=== PATIENT | female | born 1935 | race Caucasian/White ===

== ENCOUNTER 2017-04-19 11:09 | Inpatient (IN) ==
--- NOTE | 2017-04-19 12:15 | Emergency Department Note ---
Jevon Hernandez Hilary, am scribing for, and in the presence of, Jcarlos Ramires MD 12:00. Keyla Hernandez Charles R, MD, personally performed the services described in this documentation, ascribed by Brenda Escoto in my presence, and it is both accurate and complete 215 . Arrival - Arrival Chief Complaint: Extremity Problem Stated Complaint: sent by Dominick for poss blood clot/consult [facility] Nursing Triage Note: C/o left lower leg pain-onset two weeks ago. Reports that she was instructed by Dr. Tan and Dr. Raymond to come to the ER for evaluation. Left leg pale and cool to touch. No palpable pulse, states she has 6 stents in her leg and her pulse is "always hard to find". Mode of Arrival: Wheelchair Limitations: No Limitations Source: Patient, RN Notes Reviewed Time Seen by Provider: 04/19/17 11:48 - History of Present Illness HPI Narrative: Pt is a 81 y/o female presenting to the ED with c/o left lower leg pain which onset 2 weeks ago. Pt reports that she was instructed by Dr. Tan and Dr. Raymond to come to the ER for evaluation. Left leg pale and cool to touch with no palpable pulse, she states she has 7 stents in her legs 6 months ago. She states that she doesn't feel well and just feels "weak". No other complaints or problems stated in the ED. Onset (ago): week(s) Consistency: constant Severity: moderate Severity scale (1-10): 2 Date of Last Menstrual Period: menopause Allergies/Adverse Reactions: Allergies Allergy/AdvReac Type Severity Reaction Status Date / Time No Known Allergies Allergy Verified 04/19/17 11:20 Home Medications: Home Medications Medication Instructions Recorded Confirmed Type Lovastatin 20 mg PO QAM 10/05/16 04/19/17 History Multivit-Min/Iron/Folic/Lutein 1 each PO QAM 10/05/16 04/19/17 History [Centrum Silver Women Tablet] Magnesium Oxide 400 mg PO BID tablet 10/11/16 04/19/17 Rx Sotalol [Betapace] 40 mg PO BID #60 tablet 10/11/16 04/19/17 Rx Clopidogrel [Plavix] 75 mg PO QAM 04/19/17 04/19/17 History Review of System - Review of System 12 point system: reviewed and no additional remarkable complaints except as stated - Review of System Constitutional: Present: weakness. Absent: fever Musculoskeletal: Present: leg pain (left leg pain) Neurological: Present: weakness Medical,Surgical,& Family Hx - Medical History Cardio: History of: Hypertension, PVD No history of: Cardiac Dysrhythmia, CHF, CAD Endocrine: History of: Dyslipidemia Musculoskeletal: History of: Back/Neck Problems, Musculoskeletal Problems Hematology: History of: Anemia - Social History Smoking Status: Never smoker Frequency of Alcohol Use: None Type of Drug Use: None Exam Vital Signs: Vital Signs Temperature 98.0 F 04/19/17 11:15 Pulse Rate 63 04/19/17 11:15 Respiratory Rate 20 04/19/17 11:15 Blood Pressure 168/81 04/19/17 11:15 O2 Sat by Pulse Oximetry 100 04/19/17 11:15 - General General appearance: alert, in no apparent distress - Head Head exam: Present: atraumatic, normocephalic - Eye Eye exam: Present: normal appearance (pale conjuctiva), PERRL, EOMI - ENT ENT exam: Present: mucous membranes moist, TM's normal bilaterally. Absent: mucous membranes dry - Neck Neck exam: Present: full ROM, trachea midline. Absent: tenderness - Chest Chest inspection: Present: normal inspection (barrel chested), symmetric chest wall rise. Absent: tenderness - Respiratory Respiratory exam: Present: normal lung sounds bilaterally, rhonchi (bilateral). Absent: respiratory distress - Cardiovascular Cardiovascular exam: Present: regular rate, normal rhythm, normal heart sounds. Absent: murmur, rubs, gallop - Abdominal Exam Abdominal exam: Present: soft, normal bowel sounds. Absent: distention, tenderness - Extremities Exam Extremities exam: Present: tenderness (Left leg: cool temperature to touch, line of demarcation of hot and cold, delay capillary refill, no pulses felt) - Back Exam Back exam: Present: full ROM. Absent: tenderness - Neurological Exam Neurological exam: Present: alert, oriented X3, CN II-XII intact. Absent: motor sensory deficit - Psychiatric Psychiatric exam: Present: normal affect, normal mood - Skin Skin exam: Present: warm, dry, intact, normal color. Absent: rash Course - Consultations Consultation #1: Dr. Raymond was here to see patient in the emergency room they are going to take her for possible thrombosed lysis of suspected distal clot in her left leg arterial. This be done by interventional radiology. 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
[2017-04-19 12:21] LABS: Eosinophils # 0.2 10*3/uL (0.0-0.87); Eosinophils % 5.4 % (0.00-10.9); Immature Granulocytes % 0.5 %; Immature Granulocytes Absolute 0.02 #; Lymphocytes # 0.9 10*3/uL (1.4-4.0); Lymphocytes % 25.3 % (21.3-54.2); Mean Corpuscular HGB Conc 27.1 GM/DL (32-36); Mean Corpuscular Hemoglobin 19 PG (27-34); Mean Corpuscular Volume 70.2 FL (87-102); Mean Platelet Volume 10.3 FL (9.6-12.0); Monocytes # 0.3 10*3/uL (0.11-0.8); Monocytes % 7.8 % (1.7-12.7); Neutrophils # 2.3 10*3/uL (1.4-7.4); Platelet Count 169 T/CUMM (130-400); Red Blood Count 2.99 MC/CUMM (3.8-5.5); Red Cell Distribution Width 17.2 % (9.3-17.3); White Blood Count 3.7 T/CUMM (4-12)
[2017-04-19 12:28] LABS: Hemoglobin 5.7 GM/DL (12.0-16.0)
[2017-04-19 12:33] LABS: PT Patient Result 11.1 SECS
--- NOTE | 2017-04-19 12:42 | General Surg History&Physical ---
Assessment and Plan (1) Ischemic foot Status: Acute Assessment and plan: This is recurrent iliofemoral thrombosis 6 months ago Ms. Ching underwent from the lysis and external iliac stenting we will plan arteriography with thrombolyzes and intervention as is indicated. She also has a significant and profound anemia that is recurrent she has been evaluated in the past with no clear-cut reasons for the anemia. We will transfuse while here and we have discussed with her that if her anemia is resulted to chronic intestinal blood loss that could be exacerbated by thrombolyzes but it did not pose a significant issue for her in the past Current Visit: Yes (2) Anemia Status: Acute Current Visit: Yes History of Present Illness Chief complaint: left iliofemoral arterial thrombosis History of present illness: Ms. Horne is a 81 year old female Mrs. Ching is an 81-year-old woman that was here last September with a left iliofemoral thrombosis he had previously undergone left superficial femoral stenting approximately a year before [place] but developed a relatively acute thrombosis this was successfully treated with probable lysis and external iliac stenting and she has gotten along well since that time until 2-3 weeks ago. She then noted increasing pain and coolness in her left leg was seen by Dr. Tan nurse practitioner earlier today I was informed of the changes in the leg. We will let her transferred to the emergency room for clearly there is recurrent left iliofemoral thrombosis with cyanosis and coolness of the left foot. Dr. Espinoza and I have discussed her care again and they are recommending that we go ahead with the arteriogram and probable thrombolyzes and possible further intervention as indicated. I discussed this with Mrs. Ching and her daughter Ms. Lopez her is Dr. Alber Lopez an insurance account representative in [place] who is known for some time. They agreed with these plans. Of significance is recurring and persistent anemia and she is again anemic at this time and we will plan on transfusion while here. Home Medications Medication Instructions Recorded Confirmed Type Lovastatin 20 mg PO QAM 10/05/16 04/19/17 History Multivit-Min/Iron/Folic/Lutein 1 each PO QAM 10/05/16 04/19/17 History [Centrum Silver Women Tablet] Magnesium Oxide 400 mg PO BID tablet 10/11/16 04/19/17 Rx Sotalol [Betapace] 40 mg PO BID #60 tablet 10/11/16 04/19/17 Rx Clopidogrel [Plavix] 75 mg PO QAM 04/19/17 04/19/17 History Allergies Allergy/AdvReac Type Severity Reaction Status Date / Time No Known Allergies Allergy Verified 04/19/17 11:20 Medical,Surgical,& Family Hx - Medical History Cardio: History of: Hypertension, PVD No history of: Cardiac Dysrhythmia (has had atrial fibrilation associated with anemia), CHF, CAD Endocrine: History of: Dyslipidemia Musculoskeletal: History of: Back/Neck Problems, Musculoskeletal Problems Hematology: History of: Anemia - Social History Smoking Status: Never smoker Frequency of Alcohol Use: None Type of Drug Use: None Exam - Constitutional Vitals: Period Temp Pulse Resp BP Sys/Segura Pulse Ox Last 24 Hr 98.0 F 63 20 168/81 100 General appearance: no acute distress, under weight - Head Head exam: Present: normal inspection - Eye Eye exam: Present: EOMI Pupils: Present: [place] - ENT ENT exam: Present: normal external ear exam, normal oropharynx Mouth exam: Present: normal external inspection, normal voice - Neck Neck exam: Present: trachea midline - Respiratory Respiratory exam: Present: clear to auscultation bilaterally - Cardiovascular Cardiovascular exam: Present: RRR - GI/Abdominal GI/Abdominal exam: Present: soft - Expanded Left Lower Neuro vascular tendon exam: Present: extremity cold to touch (Left foot is cold to touch with cyanosis of the toes there is no Doppler signal in the dorsalis pedis of the posterior tibial significant leg there is a weak dorsalis pedis on the right there is no femoral pulse on the left a good femoral pulse on the right), pulse deficit Gait: Present: not tested/not observed - Back Exam Back exam: Present: normal inspection - Neurological Exam Neurological exam: Present: alert, oriented X3 Speech: Present: normal - Skin Skin exam: Present: normal color Hematologic/Lymphatic: Present: other (recurring anemia unknown etiology) Results - Labs CBC & BMP: 04/19/17 12:15
[2017-04-19] MEDS ORDERED: ALBUTEROL 2.5 MG/3 ML NEB RESP TX PRN (12:48)
[2017-04-19] MEDS ORDERED: ONDANSETRON 4 MG/2 ML VIAL IV PRN (12:48)
[2017-04-19] MEDS ORDERED: fentaNYL 100 MCG/2 ML VIAL IV ONE (12:51)
[2017-04-19] MEDS ORDERED: MIDAZOLAM 2 MG/2 ML VIAL IV ONE (12:51)
[2017-04-19] MEDS ORDERED: DIAZEPAM 5 MG TABLET PO ONE (12:51)
--- NOTE | 2017-04-19 12:55 | IR History and Physical Update ---
IR Pre-Procedure - History and Physical H&P was reviewed, the patient examined and there: are no changes in the patients condition since last H&P was completed. Reason for procedure:: 81 yo F new onset LLE pulseless and pain. Known to me from prior left external iliac artery stenting and revision of left SFA stents from [place], [place]. - Physical Exam Vital Signs: Last Vital Signs Temp 98 F 04/19/17 12:39 Pulse 63 04/19/17 12:39 Resp 20 04/19/17 12:39 BP 168/81 04/19/17 12:39 Pulse Ox 100 04/19/17 11:15 Mental Status: alert and oriented Peripheral pulses: 0: Common Femoral (L), Popliteal (L), Dorsalis Pedis (L), Posterior Tibialis (L), 2+: Common Femoral (R) - Sedation IR anesthesia plan for sedation: minimal ASA Class: III - Risks Risks: Procedures explained. Risks discussed include, but not limited to, the following:[catastrophic bleeding, pain, inability to restore flow ] All questions answered. The following alternatives were discussed:[surgery] Risks and benefits discussed with: patient Consent obtained from: patient Assessment and Plan - Time spent with patient Time spent with patient: Less than 30 minutes (1) Ischemic foot Status: Acute Assessment and plan: Assessment: Left esternal iliac stent thrombosis Plan: Angiogram, tPA lysis, possible stent and/or [employer] Current Visit: Yes
[2017-04-19] MEDS ORDERED: HEPARIN/NACL 0.9% 2 UNITS/ML 2,000 ML IV ONE (13:12)
[2017-04-19 13:20] LABS: Alanine Aminotransferase 13 U/L (13-56); Alkaline Phosphatase 57 U/L (45-117); Aspartate Amino Transferase 15 U/L (0-37); Blood Urea Nitrogen 11 MG/DL (7-18); Calcium 8.9 MG/DL (8.5-10.1); Glucose 117 MG/DL (74-106); Magnesium 2.2 MG/DL (1.8-2.4); Osmolality,Calculated 274.7 MOS/KG (273-304); Potassium 4.9 MMOL/L (3.5-5.1); Sodium 138 MMOL/L (136-145); Total Protein 6.6 G/DL (6.4-8.3); Troponin I Only < 0.015 NG/ML (0.00-0.045)
[2017-04-19 13:25] LABS: Hypochromasia 2+; Microcytosis 2+
[2017-04-19] MEDS ORDERED: fentaNYL 100 MCG/2 ML VIAL ONE (14:12)
[2017-04-19] MEDS ORDERED: MIDAZOLAM 2 MG/2 ML VIAL ONE (14:12)
[2017-04-19] MEDS ORDERED: ALTEPLASE 24 MG in SODIUM CHLORIDE 0.9% 480 ML IV SCH (14:30)
[2017-04-19] MEDS ORDERED: MORPHINE 2 MG/1 ML SYRINGE IV PRN (15:09)
--- NOTE | 2017-04-19 15:21 | Post Interventional Procedure ---
Pre-op diagnosis: Arterial thrombosis left pelvis Post-op diagnosis: same Procedure: Left pelvic and LLE angiogram, positioning of infustion catheter left external iliac stent occlusion Contrast: Visipaqu 320, 40 cc Flouroscopy: 9.7 min Radiologist: Maximilian Espinoza Anesthesia: conscious sedation Medications: Versed 1 mg, Fentanyl 25 mcg, 30 min Total Sedation Time: 30 min Specimens: none sent Estimated blood loss: none Complications: none Condition: stable Description/Findings: Occluded left ext iliac artery stent - placed 10 cm infusion catheter Occluded left SFA, unable to recannulate Unable to complete runoff b/c inflow disease Assessment and Plan - Time spent with patient Time spent with patient: Greater than 30 minutes (1) Ischemic foot Status: Acute Assessment and plan: Assessment: Left esternal iliac stent thrombosis Plan: Angiogram, tPA lysis, possible stent and/or MEDICAL ACCOUNTANT 15:21 @ 04/19/17: 10 cm infusion catheter placed across left external iliac artery stent occlusion. 0.5 mg/hr tPA infusion via catheter. Heparin 500 u/hr via sheath. ICU. Serial PT, PTT, fibrinogen. Recheck in the morning. Current Visit: Yes
[2017-04-19] MEDS ORDERED: HEPARIN DRIP 25,000 UNITS/500 ML PREMIX IV SCH (15:30)
--- NOTE | 2017-04-19 16:04 | Interventional Radiology Rpt ---
IR angio extremity LT, US guide vascular access, IR TPA trans cath inf arterial Indication: Peripheral arterial disease. Pulseless left leg with ischemic changes left foot. Most recent intervention September 2016 with left external iliac artery stent placement at this facility. LEFT PELVIC AND LEFT LOWER EXTREMITY ARTERIOGRAM, POSITIONING OF INFUSION CATHETER FOR THROMBOLYSIS Description: A formal timeout was performed. Maximum sterile barrier technique was instituted. Patient is artery on Plavix. Therefore, singlestick is required. Ultrasound guidance was used. Sonographic evaluation of the right common femoral artery shows atheromatous disease but it is otherwise patent and compressible. Under sonographic guidance, a micropuncture needle was advanced into the right common femoral artery. A captured sonographic image documents needle position. Needle was exchanged over a wire for a sheath. A C2 glide catheter was then used to select the left common iliac artery. Angiogram was performed showing occlusion of the left external iliac artery stent. C2 catheter and Glidewire were advanced into the occluded stent with a degree of difficulty. The thrombus encountered was hard and had a gritty tactile feel, likely chronic. Regardless, the wire was advanced further, and the C2 catheter removed. Existing sheath was exchanged for an up and over Balkan sheath. The Gage catheter was advanced over the wire and with moderate difficulty, the occluded left external iliac arterial stent was crossed. This catheter was situated in the left common femoral artery and an angiogram performed. This showed patency of the profunda femoris, but total occlusion of the left SFA. No significant outflow could be demonstrated distally. At this point, Glidewire and Gage catheter were used to probe the occluded SFA resulting in multiple subintimal dissection tracks. Contrast was injected at a couple of places within the left SFA showing both dissection flap as well as heterogeneous and coarse appearing thrombus within the left SFA, suggesting chronic thrombus. At this point, the Gage catheter was removed. A 10 cm length infusion catheter was then advanced across the occluded left external iliac artery stent. It was anchored in place, with the intent of infusing TPA 0.5 mg per hour overnight. Patient is transferred to the ICU in stable condition. Contrast: Visipaque 320, 40 cc. Fluoroscopy: 9.7 minutes, 126 captured images. Impression: 1. Total occlusion of left external iliac artery stent. Infusion catheter position for TPA thrombolyzes of the stent. 2. Total occlusion left SFA. Unable to track within the lumen of the left SFA with a catheter and wire. PROCEDURE INTERPRETED AT [facility] DEPARTMENT OF RADIOLOGY Final Report Signed by: Maximilian Espinoza M.D.
[2017-04-19] MEDS: SODIUM CHLORIDE 0.9% 1,000 ML IV SCH (16:17)
[2017-04-19 16:22] LABS: INR 1.1; PT Patient Result 11.3 SECS; Partial Thromboplastin Time 23.6 SECS (0-40)
[2017-04-19] MEDS: MORPHINE 2 MG/1 ML SYRINGE IV PRN (16:40)
[2017-04-19] MEDS ORDERED: SODIUM CHLORIDE 0.9% 250 ML IV PRN (17:05)
--- NOTE | 2017-04-19 17:05 | Cardiology Consult Note ---
Assessment and Plan - Time spent with patient Time spent with patient: Less than 30 minutes (1) Ischemic foot Status: Acute Assessment and plan: See plan of care listed below. 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 Current Visit: Yes (3) Paroxysmal atrial fibrillation Status: Chronic Assessment and plan: See plan of care listed below. Current Visit: Yes (4) Hypertension Status: Chronic Assessment and plan: See plan of care listed below. Current Visit: No (5) Peripheral vascular disease Status: Chronic Assessment and plan: See plan of care listed below. Current Visit: Yes (6) Iron deficiency anemia Status: Chronic Assessment and plan: See plan of care listed below. Current Visit: No History of Present Illness - Data of Consult Patient: known to practice within the last 3 years Consult date: 04/19/17 Requesting Physician: Rajat Raymond - Consult Narrative Reason for consult: history of afib History of present illness: HISTORICAL MANUSCRIPTS CURATOR: DR. CAMARILLO PCP: Dr. Tan Ms. Horne is a 81 year old female with a history of paroxysmal atrial fibrillation, hypertension, peripheral vascular disease, iron deficiency anemia. She was admitted to the hospital today after being seen in Dr. Tan' s clinic. Over the past several weeks she has noticed increasing pain and coldness in the left leg. She was seen in the emergency room by general surgery and interventional radiology. 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 She has also had persistent anemia with current H&H 5.7&21.0. She has been ordered to receive 2 units of blood. We were consulted to see her for her history of PAF. She currently looks like she has been in sinus arrhythmia, we will get an EKG to confirm. She has previously not been a candidate for anticoagulation due to her history of anemia. She has been controlled with sotalol in the past and we will continue this. She denies any recent chest pain, palpitations. She reports she does occasionally have some shortness of breath but not on a regular basis. Upon admission, she was noted to have a white blood cell count 3.7, red blood cell count 2.99, hemoglobin 5.7, hematocrit 21, platelet count 169. INR was 1.1. Potassium 4.9, creatinine 0.6 with GFR 73 and magnesium 2.2. Angiography of the left extremity revealed: 1. Total occlusion of left external iliac artery stent. Infusion catheter position for TPA thrombolyzes of the stent. 2. Total occlusion left SFA. Unable to track within the lumen of the left SFA with a catheter and wire. ASSESSMENT/PLAN: 1. ISCHEMIC FOOT - General surgery and IR are following. She is currently receiving TPA and Heparin. 2. LEFT EXTERNAL ILIAC STENT THROMBOSIS - Patient was found to have an occluded left external iliac artery stent for which a 10cm infusion catheter was placed, occluded left SFA which IR was unable to recannulate, and runoff was not completed due to inflow disease. She is currently receiving TPA @ 0.5mg/hr via infusion catheter and Heparin 500 units/hr via sheath. 3. PAROXYSMAL ATRIAL FIBRILLATION - Continue Sotalol. EKG now and in AM. Not a candidate for chronic anticoagulation due to anemia and history of thrombocytopenia. 4. HYPERTENSION - Currently hypertensive; however, Ms. Horne is currently in a good deal of pain following her procedure. Once her pain is better under control , we will have a better idea of what her baseline is. We will continue to monitor and adjust medications accordingly. 5. PERIPHERAL VASCULAR DISEASE - Chronic. 6. IRON DEFICIENCY ANEMIA - Anemic upon admission. She is to receive 2 units of blood. CC: Rajat Raymond MD - Home Medications and Allergies Home Medications: Home Medications Medication Instructions Recorded Confirmed Type Lovastatin 20 mg PO QAM 10/05/16 04/19/17 History Multivit-Min/Iron/Folic/Lutein 1 each PO QAM 10/05/16 04/19/17 History [Centrum Silver Women Tablet] Magnesium Oxide 400 mg PO BID tablet 10/11/16 04/19/17 Rx Sotalol [Betapace] 40 mg PO BID #60 tablet 10/11/16 04/19/17 Rx Clopidogrel [Plavix] 75 mg PO QAM 04/19/17 04/19/17 History Allergies/Adverse Reactions: Allergies Allergy/AdvReac Type Severity Reaction Status Date / Time No Known Allergies Allergy Verified 04/19/17 11:20 Review of systems: - Constitutional: Present: fatigue, As per HPI. Absent: anorexia, chills, daytime sleepiness, excessive sweating, fever(s), frequent falls, headache(s), increased appetite, lethargy, malaise, night sweats, stops breathing during sleep, weakness, weight gain, weight loss, . - EENT Eyes: Present: As per HPI. Absent: blurry vision, diplopia, loss of vision Ears: Present: As per HPI. Absent: decreased hearing, ear discharge, ear pain Nose, mouth and throat: Present: As per HPI. Absent: dysphagia, epistaxis, headache(s), hoarseness, lip swelling, nasal congestion, neck mass, neck pain, sinus pressure, sore throat, throat swelling, tongue swelling, vertigo - Cardiovascular: Present: occasional dyspnea, as per HPI. Absent: chest pain at rest, chest pain with activity, dyspnea on exertion, edema, claudication, diaphoresis, radiating jaw, neck or arm pain, lightheadedness, orthopnea, palpitations, PND - Respiratory: Present: as per HPI. Absent: dyspnea, dyspnea on exertion, cough , hemoptysis, wheezing, snoring, pain on inspiration - Gastrointestinal: Present: As per HPI. Absent: abdominal pain, bloating, change in bowel habits, constipation, diarrhea, heartburn, hematemesis, hematochezia, loose stools, melena, nausea, vomiting - Genitourinary: Present: As per HPI. Absent: difficulty urinating, dysuria, flank pain, hematuria, nocturia, urinary frequency, urinary incontinence - Musculoskeletal: Present: left leg pain, As per HPI. Absent: arthralgias, back pain, joint swelling, limited range of motion, muscle cramps, muscle weakness, myalgias - Neurological: Present: weakness, numbness,As per HPI. Absent: abnormal gait, abnormal speech, behavioral changes, confusion, convulsions, disequilibrium, dizziness, focal frequent falls, headache(s), memory loss, paresthesias, radicular pain, syncope, tremor(s) - Psychiatric: Present: As per HPI. Absent: anxiety, confusion, depression, panic attacks - Endocrine: Present: fatigue, As per HPI. Absent: cold intolerance, heat intolerance, polydipsia, polyphagia - Hematologic/Lymphatic: Present: As per HPI. Absent: easy bleeding, easy bruising, lymphadenopathy Medical,Surgical,& Family Hx - Medical History Cardio: History of: Cardiac Dysrhythmia (has had atrial fibrilation associated with anemia), Hypertension, PVD No history of: CHF, CAD Endocrine: History of: Dyslipidemia Musculoskeletal: History of: Back/Neck Problems, Musculoskeletal Problems Hematology: History of: Anemia - Social History Smoking Status: Never smoker Frequency of Alcohol Use: None Type of Drug Use: None Marital Status: Lives With:: Alone Physical Examination Vital Signs Temp Pulse Resp BP Pulse Ox 98.0 F 63 20 168/81 100 04/19/17 11:15 04/19/17 11:15 04/19/17 11:15 04/19/17 11:15 04/19/17 11:15 Exam: General appearance: Pleasant and cooperative. Normal weight, mild distress due to left lower extremity and left groin pain. - Head Head exam: Present: normal inspection, normocephalic, atraumatic. Absent: hematoma, laceration - Eye Eye exam: Present: EOMI. Absent: conjunctival injection, nystagmus, periorbital swelling, scleral icterus, laceration to eyelids Pupils: Present: PERRL. Absent: constricted, dilated, fixed, irregular, unequal - ENT ENT exam: Present: normal exam, normal external ear exam - Neck Neck exam: Present: normal inspection. Absent: lymphadenopathy, meningismus, tenderness, thyromegaly - Respiratory Respiratory exam: Present: clear to auscultation bilaterally. Absent: accessory muscle use, chest wall tenderness - Cardiovascular Cardiovascular exam: Present: regular rate and rhythm. Absent: carotid bruit, gallop, JVD, rubs, murmur - GI/Abdominal GI/Abdominal exam: Present: normal bowel sounds, soft. Absent: distended, firm , guarding, hernia, mass, tenderness, rebound. - Extremities Exam Extremities exam: Present: Upper extremity pulses 2+. Right lower extremity pulse 2+. Left lower extremity pulse diminished. Absent: calf tenderness, edema -Musculoskeletal Exam Musculoskeletal: Present: No Fluid Collection, No Pain, Normal Range of Motion - Back Exam Back exam: Present: Unable to assess due to habitus (patient lying flat due to vascular procedure and right groin sheath/infusion catheter in place) - Neurological Exam Neurological exam: Present: alert, oriented X3, grossly intact without resting or essential tremor - Psychiatric Psychiatric exam: Present: normal affect, normal mood - Skin Skin exam: Present: normal color, warm, dry, intact except: Left foot cool with grayish appearance. Right foot pink and warm. Absent: diaphoretic, rash, urticaria Result/EKG - Labs CBC & BMP: 04/19/17 12:15 04/19/17 12:15 Lab Results: I have reviewed the past 24 hour labs Labs: Laboratory Results - last 24 hr 04/19/17 04/19/17 04/19/17 12:02 12:15 12:15 WBC 3.7 L RBC 2.99 L Hgb 5.7 L* Hct 21.0 L MCV 70.2 L MCH 19 L MCHC 27.1 L RDW 17.2 Plt Count 169 MPV 10.3 Neut % (Auto) 61.0 Lymph % (Auto) 25.3 Norman % (Auto) 7.8 Eos % (Auto) 5.4 Baso % (Auto) 0.0 Neut # (Auto) 2.3 Lymph # (Auto) 0.9 L Norman # (Auto) 0.3 Eos # (Auto) 0.2 Baso # (Auto) 0.0 Immature Gran % 0.5 Nucleated RBC % 0.0 Immature Gran # 0.02 Nucleated RBCs # 0.00 Hypochromasia 2+ Microcytosis 2+ INR 1.0 PT Patient/Control Mix 11.1 Fibrinogen Circ Anticoag PTT Sodium 138 Potassium 4.9 Chloride 104 Carbon Dioxide 27 Anion Gap 11.9 BUN 11 Creatinine 0.60 GFR Calculation 73 BUN/Creatinine Ratio 18.00 Glucose 117 H Calculated Osmolality 274.7 Calcium 8.9 Magnesium 2.2 Total Bilirubin 0.40 AST 15 ALT 13 Alkaline Phosphatase 57 Total Creatine Kinase 237 H CK-MB (CK-2) 4.9 H Troponin I < 0.015 Total Protein 6.6 Albumin 4.0 Globulin 2.6 Albumin/Globulin Ratio 1.5 Blood Type Antibody Screen 04/19/17 04/19/17 04/19/17 12:51 13:09 15:47 WBC RBC Hgb Hct MCV MCH MCHC RDW Plt Count MPV Neut % (Auto) Lymph % (Auto) Norman % (Auto) Eos % (Auto) Baso % (Auto) Neut # (Auto) Lymph # (Auto) Norman # (Auto) Eos # (Auto) Baso # (Auto) Immature Gran % Nucleated RBC % Immature Gran # Nucleated RBCs # Hypochromasia Microcytosis INR 1.0 1.1 PT Patient/Control Mix 11.0 11.3 Fibrinogen 209 Circ Anticoag PTT 24.0 D 23.6 Sodium Potassium Chloride Carbon Dioxide Anion Gap BUN Creatinine GFR Calculation BUN/Creatinine Ratio Glucose Calculated Osmolality Calcium Magnesium Total Bilirubin AST ALT Alkaline Phosphatase Total Creatine Kinase CK-MB (CK-2) Troponin I Total Protein Albumin Globulin Albumin/Globulin Ratio Blood Type O NEGATIVE Antibody Screen Negative Quality Measures - VTE Contraindication to Pharmacological VTE Prophylaxis: High Risk of Bleeding
[2017-04-19 17:55] LABS: Apearance,Urine CLEAR (Clear); Bilirubin,Urine Negative (Negative); Blood, Urine Negative (Negative); Glucose,Urine (UA) Negative (Negative); Ketones,Urine Negative (Negative); Nitrite,Urine Negative (Negative); Protein,Urine Negative; RBC,Urine 1 /HPF (0-4); Urine Color Straw (Yellow); Urine Specific Gravity 1.005 (1.001-1.035); Urine Urobilinogen < 2.0 EU/DL (0.2-1.0); WBC,Urine 2 /HPF (0-6)
[2017-04-19] MEDS ORDERED: LIDOCAINE 5% PATCH TRANSDERM SCH (18:00)
[2017-04-19] MEDS ORDERED: LIDOCAINE 5% PATCH TRANSDERM PRN (19:12)
[2017-04-19] MEDS: MAGNESIUM OXIDE 400 MG TABLET PO SCH (20:41)
[2017-04-19] MEDS: SOTALOL 80 MG TABLET PO SCH (20:41)
[2017-04-19] MEDS: diphenhydrAMINE CAP 25 MG CAPSULE PO PRN (22:31)
[2017-04-20 04:24] LABS: Basophils % 0.3 % (0.0-0.8); Eosinophils # 0.3 10*3/uL (0.0-0.87); Hematocrit 26.2 VOL% (35.7-47.0); Hemoglobin 7.9 GM/DL (12.0-16.0); Immature Granulocytes % 0.3 %; Immature Granulocytes Absolute 0.01 #; Lymphocytes # 0.7 10*3/uL (1.4-4.0); Lymphocytes % 22.8 % (21.3-54.2); Mean Corpuscular HGB Conc 30.2 GM/DL (32-36); Mean Corpuscular Hemoglobin 23 PG (27-34); Mean Corpuscular Volume 76.4 FL (87-102); Mean Platelet Volume 10.2 FL (9.6-12.0); Monocytes # 0.3 10*3/uL (0.11-0.8); Monocytes % 7.8 % (1.7-12.7); Neutrophils # 1.9 10*3/uL (1.4-7.4); Neutrophils % 58.8 % (38.7-73.9); Platelet Count 116 T/CUMM (130-400); Red Blood Count 3.43 MC/CUMM (3.8-5.5); Red Cell Distribution Width 19.6 % (9.3-17.3); White Blood Count 3.2 T/CUMM (4-12)
[2017-04-20 04:37] LABS: INR 1.2; PT Patient Result 12.3 SECS
[2017-04-20 04:39] LABS: Partial Thromboplastin Time 35.2 SECS (0-40)
[2017-04-20 04:59] LABS: Calcium 8.4 MG/DL (8.5-10.1); Osmolality,Calculated 276.4 MOS/KG (273-304); Potassium 3.8 MMOL/L (3.5-5.1)
[2017-04-20] MEDS: SODIUM CHLORIDE 0.9% 1,000 ML IV SCH ×3 (07:37→18:52)
--- NOTE | 2017-04-20 07:54 | EKG Report ---
Stationary ECG Study [facility] Test Date: 04/20/2017 7:56:18 AM Pat Name: EZEQUIEL HARRIS Department: Room: 117 Gender: F Business Development Director: MADELINE : [id number] Requested by: Caitlin Chacon Order Number: [id number] Reading MD: TONY HOWARD Intervals [place] Rate: 59 P: 58 HI: 199 QRS: 71 QRSD: 89 T: 92 QT: 430 QTc: 428 Interpretive Statements SINUS RHYTHM WITH OCCASIONAL SUPRAVENTRICULAR PREMATURE COMPLEXES at 59 bpm NONSPECIFIC T-WAVE ABNORMALITY Electronically Signed On 04-20-17 11:07:46 CDT by TONY HOWARD [email or web address]
--- NOTE | 2017-04-20 07:59 | Event Note ---
Ms. Ching appears to be doing well this morning vital signs look good she states her foot feels better with less numbness and tingling and in fact does feel warmer all but the first toe are quite pink and it is still cyanotic on its pulp portion palpated necrosis she does not have any hematomas of either groin some mild bleeding around the sheath on the right side. I anticipate a completion arteriogram today and possibly we will finish the TPA infusion and my thought would then be to just see how she does clinically rather than proceed with any type of intervention on the superficial femoral further. Dr. Espinoza my findings during the arteriogram this morning that he can do something further with the superficial femoral. Her H&H is up 7 and 26 so we will hold on any further transfusion at this time. My thought would be for her to stay in the intensive care unit at least until this afternoon if not until tomorrow.
--- NOTE | 2017-04-20 08:51 | Cardiology Progress Note ---
<Ivon Chacon E - Last Filed: 04/20/17 08:45> Assessment and Plan - Time spent with patient Time spent with patient: Less than 30 minutes (1) Ischemic foot Status: Acute Assessment and plan: See plan of care listed below. 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 Current Visit: Yes (3) Paroxysmal atrial fibrillation Status: Chronic Assessment and plan: See plan of care listed below. Current Visit: Yes (4) Hypertension Status: Chronic Assessment and plan: See plan of care listed below. Current Visit: No (5) Peripheral vascular disease Status: Chronic Assessment and plan: See plan of care listed below. Current Visit: Yes (6) Iron deficiency anemia Status: Chronic Assessment and plan: See plan of care listed below. Current Visit: No Cardiology - PN: Subj Interval history: PATROL INSPECTOR: DR. CAMARILLO PCP: Dr. Tan SUMMARY: Ms. Horne is a 81 year old female with a history of paroxysmal atrial fibrillation, hypertension, peripheral vascular disease, iron deficiency anemia who is admitted to the hospital for left ischemic foot. She underwent angiography of the left extremity which revealed total occlusion in the left external iliac artery stent and total occlusion of the left SFA. Interventional radiology placed infusion catheter for TPA thrombolysis of the stent. They are unable to track within the lumen of the left SFA with the catheter and wire. She has been receiving heparin through the sheath. She was anemic upon admission and received 2 units of blood. APRIL 20, 2017 UPDATE: Ms. Horne is doing well this morning. She reports she had a restful night and has had no further pain. Her left foot is looking and feeling much better. Coloring has improved and it feels warmer she continues to have some cyanosis of the left great toe. I resumed her sotalol yesterday and she is now in rate controlled atrial fibrillation. Will continue to monitor. ASSESSMENT/PLAN: 1. ISCHEMIC FOOT - General surgery and IR are following. She is currently receiving TPA and Heparin. 2. LEFT EXTERNAL ILIAC STENT THROMBOSIS - Patient was found to have an occluded left external iliac artery stent for which a 10cm infusion catheter was placed, occluded left SFA which IR was unable to recannulate, and runoff was not completed due to inflow disease. She is currently receiving TPA @ 0.5mg/hr via infusion catheter and Heparin 500 units/hr via sheath. 3. PAROXYSMAL ATRIAL FIBRILLATION - Continue Sotalol. EKG now and in AM. Not a candidate for chronic anticoagulation due to anemia and history of thrombocytopenia. 4. HYPERTENSION - Better controlled than yesterday although slightly hypertensive at times. We will continue to monitor and adjust medications accordingly. 5. PERIPHERAL VASCULAR DISEASE - Chronic. 6. IRON DEFICIENCY ANEMIA - Anemic upon admission. She received 2 units of blood and H&H is up to 7.9 and 26.2. Exam (Progress Note) - Constitutional Vitals: Period Temp Pulse Resp BP Sys/Segura Pulse Ox Last 24 Hr 96.9 F-98.2 F 55-87 11-29 90-198/40-107 81-100 Exam: General appearance: Pleasant and cooperative. Normal weight, mild distress due to left lower extremity and left groin pain. - Head Head exam: Present: normal inspection, normocephalic, atraumatic. Absent: hematoma, laceration - Eye Eye exam: Present: EOMI. Absent: conjunctival injection, nystagmus, periorbital swelling, scleral icterus, laceration to eyelids Pupils: Present: PERRL. Absent: constricted, dilated, fixed, irregular, unequal - ENT ENT exam: Present: normal exam, normal external ear exam - Neck Neck exam: Present: normal inspection. Absent: lymphadenopathy, meningismus, tenderness, thyromegaly - Respiratory Respiratory exam: Present: clear to auscultation bilaterally. Absent: accessory muscle use, chest wall tenderness - Cardiovascular Cardiovascular exam: Present: regular rate and rhythm. Absent: carotid bruit, gallop, JVD, rubs, murmur - GI/Abdominal GI/Abdominal exam: Present: normal bowel sounds, soft. Absent: distended, firm , guarding, hernia, mass, tenderness, rebound. - Extremities Exam Extremities exam: Present: Upper extremity pulses 2+. Right lower extremity pulse 2+. LLE pulse not palpable, requires doppler. No hematoma of either groin present. Sheath in place with some mild bleeding to the right groin. Absent: calf tenderness, edema -Musculoskeletal Exam Musculoskeletal: Present: No Fluid Collection, No Pain, Normal Range of Motion - Back Exam Back exam: Present: Unable to assess due to habitus (patient lying flat due to vascular procedure and right groin sheath/infusion catheter in place) - Neurological Exam Neurological exam: Present: alert, oriented X3, grossly intact without resting or essential tremor - Psychiatric Psychiatric exam: Present: normal affect, normal mood - Skin Skin exam: Present: normal color, warm, dry, intact except: Left foot warmer and pink today with mild cyanosis of left great toe. Right foot pink and warm. Absent: diaphoretic, rash, urticaria Result/EKG - Labs CBC & BMP: 04/20/17 03:41 04/20/17 03:41 Lab Results: I have reviewed the past 24 hour labs Labs: Laboratory Results - last 24 hr 04/19/17 04/19/17 04/19/17 12:02 12:15 12:15 WBC 3.7 L RBC 2.99 L Hgb 5.7 L* Hct 21.0 L MCV 70.2 L MCH 19 L MCHC 27.1 L RDW 17.2 Plt Count 169 MPV 10.3 Neut % (Auto) 61.0 Lymph % (Auto) 25.3 [place] % (Auto) 7.8 Eos % (Auto) 5.4 Baso % (Auto) 0.0 Neut # (Auto) 2.3 Lymph # (Auto) 0.9 L [place] # (Auto) 0.3 Eos # (Auto) 0.2 Baso # (Auto) 0.0 Immature Gran % 0.5 Nucleated RBC % 0.0 Immature Gran # 0.02 Nucleated RBCs # 0.00 Hypochromasia 2+ Microcytosis 2+ INR 1.0 PT Patient/Control Mix 11.1 Fibrinogen Circ Anticoag PTT Sodium 138 Potassium 4.9 Chloride 104 Carbon Dioxide 27 Anion Gap 11.9 BUN 11 Creatinine 0.60 GFR Calculation 73 BUN/Creatinine Ratio 18.00 Glucose 117 H Calculated Osmolality 274.7 Calcium 8.9 Magnesium 2.2 Total Bilirubin 0.40 AST 15 ALT 13 Alkaline Phosphatase 57 Total Creatine Kinase 237 H CK-MB (CK-2) 4.9 H Troponin I < 0.015 Total Protein 6.6 Albumin 4.0 Globulin 2.6 Albumin/Globulin Ratio 1.5 Urine Color Urine Appearance Urine pH Ur Specific [place] Urine Protein Urine Glucose (UA) Urine Ketones Urine Blood Urine Nitrate Urine Bilirubin Urine Urobilinogen Urine Leukocytes Urine RBC Urine WBC Ur Culture Indicated? Blood Type Antibody Screen Crossmatch Blood Bank Comment 04/19/17 04/19/17 04/19/17 12:51 13:09 15:47 WBC RBC Hgb Hct MCV MCH MCHC RDW Plt Count MPV Neut % (Auto) Lymph % (Auto) [place] % (Auto) Eos % (Auto) Baso % (Auto) Neut # (Auto) Lymph # (Auto) [place] # (Auto) Eos # (Auto) Baso # (Auto) Immature Gran % Nucleated RBC % Immature Gran # Nucleated RBCs # Hypochromasia Microcytosis INR 1.0 1.1 PT Patient/Control Mix 11.0 11.3 Fibrinogen 209 Circ Anticoag PTT 24.0 D 23.6 Sodium Potassium Chloride Carbon Dioxide Anion Gap BUN Creatinine GFR Calculation BUN/Creatinine Ratio Glucose Calculated Osmolality Calcium Magnesium Total Bilirubin AST ALT Alkaline Phosphatase Total Creatine Kinase CK-MB (CK-2) Troponin I Total Protein Albumin Globulin Albumin/Globulin Ratio Urine Color Urine Appearance Urine pH Ur Specific [place] Urine Protein Urine Glucose (UA) Urine Ketones Urine Blood Urine Nitrate Urine Bilirubin Urine Urobilinogen Urine Leukocytes Urine RBC Urine WBC Ur Culture Indicated? Blood Type O NEGATIVE Antibody Screen Negative Crossmatch Blood Bank Comment 04/19/17 04/19/17 04/20/17 17:19 Unknown 03:41 WBC 3.2 L RBC 3.43 L Hgb 7.9 L D Hct 26.2 L MCV 76.4 L MCH 23 L MCHC 30.2 L RDW 19.6 H Plt Count 116 L D MPV 10.2 Neut % (Auto) 58.8 Lymph % (Auto) 22.8 [place] % (Auto) 7.8 Eos % (Auto) 10.0 Baso % (Auto) 0.3 Neut # (Auto) 1.9 Lymph # (Auto) 0.7 L [place] # (Auto) 0.3 Eos # (Auto) 0.3 Baso # (Auto) 0.0 Immature Gran % 0.3 Nucleated RBC % 0.0 Immature Gran # 0.01 Nucleated RBCs # 0.00 Hypochromasia Microcytosis INR PT Patient/Control Mix Fibrinogen Circ Anticoag PTT Sodium Potassium Chloride Carbon Dioxide Anion Gap BUN Creatinine GFR Calculation BUN/Creatinine Ratio Glucose Calculated Osmolality Calcium Magnesium Total Bilirubin AST ALT Alkaline Phosphatase Total Creatine Kinase CK-MB (CK-2) Troponin I Total Protein Albumin Globulin Albumin/Globulin Ratio Urine Color Straw Urine Appearance Clear Urine pH 6.0 Ur Specific [place] 1.005 Urine Protein Negative Urine Glucose (UA) Negative Urine Ketones Negative Urine Blood Negative Urine Nitrate Negative Urine Bilirubin Negative Urine Urobilinogen < 2.0 H Urine Leukocytes Trace Urine RBC 1 Urine WBC 2 Ur Culture Indicated? Not indicated Blood Type O NEGATIVE Antibody Screen Cancelled Crossmatch See Detail Blood Bank Comment Cancelled 04/20/17 04/20/17 04/20/17 03:41 03:41 03:41 WBC RBC Hgb Hct MCV MCH MCHC RDW Plt Count MPV Neut % (Auto) Lymph % (Auto) [place] % (Auto) Eos % (Auto) Baso % (Auto) Neut # (Auto) Lymph # (Auto) [place] # (Auto) Eos # (Auto) Baso # (Auto) Immature Gran % Nucleated RBC % Immature Gran # Nucleated RBCs # Hypochromasia Microcytosis INR 1.2 PT Patient/Control Mix 12.3 Fibrinogen 122 L Circ Anticoag PTT 35.2 D Sodium 140 Potassium 3.8 Chloride 105 Carbon Dioxide 27 Anion Gap 11.8 BUN 7 Creatinine 0.50 L GFR Calculation 80 BUN/Creatinine Ratio 14.00 Glucose 94 Calculated Osmolality 276.4 Calcium 8.4 L Magnesium Total Bilirubin AST ALT Alkaline Phosphatase Total Creatine Kinase CK-MB (CK-2) Troponin I Total Protein Albumin Globulin Albumin/Globulin Ratio Urine Color Urine Appearance Urine pH Ur Specific [place] Urine Protein Urine Glucose (UA) Urine Ketones Urine Blood Urine Nitrate Urine Bilirubin Urine Urobilinogen Urine Leukocytes Urine RBC Urine WBC Ur Culture Indicated? Blood Type Antibody Screen Crossmatch Blood Bank Comment - EKG EKG results: interpreted by me EKG shows: atrial fibrillation (with controlled ventricular response) Quality Measures - VTE Contraindication to Pharmacological VTE Prophylaxis: High Risk of Bleeding <Flako Jacob - Last Filed: 04/20/17 11:20> Cardiology - PN: Subj Interval history: Patient is slowly better from her embolic event. She is continuing on anticoagulation. She is anemic and this is being corrected as well. I have discussed in detail the particulars of this case and I have examined the patient and reviewed the patient's chart both current and old. I was directly involved in the patient's evaluation and management and I completely agree with Ivon Chacon NP regarding this patient's evaluation and treatment plan. Exam (Progress Note) - Constitutional Vitals: Period Temp Pulse Resp BP Sys/Segura Pulse Ox Last 24 Hr 96.9 F-98.2 F 55-87 11-29 90-198/40-107 81-100 Result/EKG - Labs CBC & BMP: 04/20/17 03:41 04/20/17 03:41 Labs: Laboratory Results - last 24 hr 04/19/17 04/19/17 04/19/17 12:02 12:15 12:15 WBC 3.7 L RBC 2.99 L Hgb 5.7 L* Hct 21.0 L MCV 70.2 L MCH 19 L MCHC 27.1 L RDW 17.2 Plt Count 169 MPV 10.3 Neut % (Auto) 61.0 Lymph % (Auto) 25.3 [place] % (Auto) 7.8 Eos % (Auto) 5.4 Baso % (Auto) 0.0 Neut # (Auto) 2.3 Lymph # (Auto) 0.9 L [place] # (Auto) 0.3 Eos # (Auto) 0.2 Baso # (Auto) 0.0 Immature Gran % 0.5 Nucleated RBC % 0.0 Immature Gran # 0.02 Nucleated RBCs # 0.00 Hypochromasia 2+ Microcytosis 2+ INR 1.0 PT Patient/Control Mix 11.1 Fibrinogen Circ Anticoag PTT Sodium 138 Potassium 4.9 Chloride 104 Carbon Dioxide 27 Anion Gap 11.9 BUN 11 Creatinine 0.60 GFR Calculation 73 BUN/Creatinine Ratio 18.00 Glucose 117 H Calculated Osmolality 274.7 Calcium 8.9 Magnesium 2.2 Total Bilirubin 0.40 AST 15 ALT 13 Alkaline Phosphatase 57 Total Creatine Kinase 237 H CK-MB (CK-2) 4.9 H Troponin I < 0.015 Total Protein 6.6 Albumin 4.0 Globulin 2.6 Albumin/Globulin Ratio 1.5 Urine Color Urine Appearance Urine pH Ur Specific [place] Urine Protein Urine Glucose (UA) Urine Ketones Urine Blood Urine Nitrate Urine Bilirubin Urine Urobilinogen Urine Leukocytes Urine RBC Urine WBC Ur Culture Indicated? Blood Type Antibody Screen Crossmatch Blood Bank Comment 04/19/17 04/19/17 04/19/17 12:51 13:09 15:47 WBC RBC Hgb Hct MCV MCH MCHC RDW Plt Count MPV Neut % (Auto) Lymph % (Auto) [place] % (Auto) Eos % (Auto) Baso % (Auto) Neut # (Auto) Lymph # (Auto) [place] # (Auto) Eos # (Auto) Baso # (Auto) Immature Gran % Nucleated RBC % Immature Gran # Nucleated RBCs # Hypochromasia Microcytosis INR 1.0 1.1 PT Patient/Control Mix 11.0 11.3 Fibrinogen 209 Circ Anticoag PTT 24.0 D 23.6 Sodium Potassium Chloride Carbon Dioxide Anion Gap BUN Creatinine GFR Calculation BUN/Creatinine Ratio Glucose Calculated Osmolality Calcium Magnesium Total Bilirubin AST ALT Alkaline Phosphatase Total Creatine Kinase CK-MB (CK-2) Troponin I Total Protein Albumin Globulin Albumin/Globulin Ratio Urine Color Urine Appearance Urine pH Ur Specific [place] Urine Protein Urine Glucose (UA) Urine Ketones Urine Blood Urine Nitrate Urine Bilirubin Urine Urobilinogen Urine Leukocytes Urine RBC Urine WBC Ur Culture Indicated? Blood Type O NEGATIVE Antibody Screen Negative Crossmatch Blood Bank Comment 04/19/17 04/19/17 04/20/17 17:19 Unknown 03:41 WBC 3.2 L RBC 3.43 L Hgb 7.9 L D Hct 26.2 L MCV 76.4 L MCH 23 L MCHC 30.2 L RDW 19.6 H Plt Count 116 L D MPV 10.2 Neut % (Auto) 58.8 Lymph % (Auto) 22.8 [place] % (Auto) 7.8 Eos % (Auto) 10.0 Baso % (Auto) 0.3 Neut # (Auto) 1.9 Lymph # (Auto) 0.7 L [place] # (Auto) 0.3 Eos # (Auto) 0.3 Baso # (Auto) 0.0 Immature Gran % 0.3 Nucleated RBC % 0.0 Immature Gran # 0.01 Nucleated RBCs # 0.00 Hypochromasia Microcytosis INR PT Patient/Control Mix Fibrinogen Circ Anticoag PTT Sodium Potassium Chloride Carbon Dioxide Anion Gap BUN Creatinine GFR Calculation BUN/Creatinine Ratio Glucose Calculated Osmolality Calcium Magnesium Total Bilirubin AST ALT Alkaline Phosphatase Total Creatine Kinase CK-MB (CK-2) Troponin I Total Protein Albumin Globulin Albumin/Globulin Ratio Urine Color Straw Urine Appearance Clear Urine pH 6.0 Ur Specific [place] 1.005 Urine Protein Negative Urine Glucose (UA) Negative Urine Ketones Negative Urine Blood Negative Urine Nitrate Negative Urine Bilirubin Negative Urine Urobilinogen < 2.0 H Urine Leukocytes Trace Urine RBC 1 Urine WBC 2 Ur Culture Indicated? Not indicated Blood Type O NEGATIVE Antibody Screen Cancelled Crossmatch See Detail Blood Bank Comment Cancelled 04/20/17 04/20/17 04/20/17 03:41 03:41 03:41 WBC RBC Hgb Hct MCV MCH MCHC RDW Plt Count MPV Neut % (Auto) Lymph % (Auto) [place] % (Auto) Eos % (Auto) Baso % (Auto) Neut # (Auto) Lymph # (Auto) [place] # (Auto) Eos # (Auto) Baso # (Auto) Immature Gran % Nucleated RBC % Immature Gran # Nucleated RBCs # Hypochromasia Microcytosis INR 1.2 PT Patient/Control Mix 12.3 Fibrinogen 122 L Circ Anticoag PTT 35.2 D Sodium 140 Potassium 3.8 Chloride 105 Carbon Dioxide 27 Anion Gap 11.8 BUN 7 Creatinine 0.50 L GFR Calculation 80 BUN/Creatinine Ratio 14.00 Glucose 94 Calculated Osmolality 276.4 Calcium 8.4 L Magnesium Total Bilirubin AST ALT Alkaline Phosphatase Total Creatine Kinase CK-MB (CK-2) Troponin I Total Protein Albumin Globulin Albumin/Globulin Ratio Urine Color Urine Appearance Urine pH Ur Specific [place] Urine Protein Urine Glucose (UA) Urine Ketones Urine Blood Urine Nitrate Urine Bilirubin Urine Urobilinogen Urine Leukocytes Urine RBC Urine WBC Ur Culture Indicated? Blood Type Antibody Screen Crossmatch Blood Bank Comment
[2017-04-20] MEDS: MULTIVITAMIN (CENTRUM) TABLET PO SCH (08:57)
[2017-04-20] MEDS: PANTOPRAZOLE 40 MG TABLET PO SCH (08:58)
[2017-04-20] MEDS: SOTALOL 80 MG TABLET PO SCH ×2 (08:58→20:37)
[2017-04-20] MEDS: LOVASTATIN 20 MG TABLET PO SCH (08:58)
[2017-04-20] MEDS: MAGNESIUM OXIDE 400 MG TABLET PO SCH ×2 (08:58→20:39)
--- NOTE | 2017-04-20 09:50 | Event Note ---
12 hours tPA. Foot color improved and now warm. Toes remain dusky. Unable to palpate DP, PT or popliteal pulses. Angiogram today.
[2017-04-20] MEDS ORDERED: MORPHINE 2 MG/1 ML SYRINGE ONE (10:42)
[2017-04-20] MEDS: MORPHINE 2 MG/1 ML SYRINGE IV PRN ×3 (10:48→14:18)
--- NOTE | 2017-04-20 11:03 | Post Interventional Procedure ---
Pre-op diagnosis: LLE ischemia Post-op diagnosis: same Procedure: Left pelvis angiogram, stent-graft left ext iliac artery, left popliteal angio Contrast: Visi 65 cc Flouroscopy: 5.3 min Radiologist: Maximilian Espinoza Anesthesia: local Specimens: none sent Estimated blood loss: none Complications: none Condition: stable Grafts or Implants: 8 x 60 mm Fluency Plus stent-graft left external iliac artery Assessment and Plan - Time spent with patient Time spent with patient: Greater than 30 minutes (1) Ischemic foot Status: Acute Assessment and plan: Assessment: Left esternal iliac stent thrombosis Plan: Angiogram, tPA lysis, possible stent and/or OIL RIG ROUGHNECK 15:21 @ 04/19/17: 10 cm infusion catheter placed across left external iliac artery stent occlusion. 0.5 mg/hr tPA infusion via catheter. Heparin 500 u/hr via sheath. ICU. Serial PT, PTT, fibrinogen. Recheck in the morning. Current Visit: Yes
[2017-04-20] MEDS: HEPARIN DRIP 25,000 UNITS/500 ML PREMIX IV SCH (11:44)
--- NOTE | 2017-04-20 14:17 | Interventional Radiology Rpt ---
IR urokinase cease thromlysis, IR stent place architectural project captain iliac Indication: Cold left foot. TPA administration last 12 hours. Improved collar left foot after thrombolysis. Evaluate for residual stenosis. LEFT PELVIC ANGIOGRAM, LEFT EXTERNAL ILIAC ARTERY ANGIOPLASTY AND STENT GRAFT PLACEMENT, LEFT POPLITEAL ARTERY ANGIOGRAM Description: A formal timeout was performed. Through the existing right groin sheath which extends up and over the bifurcation, a left pelvic angiogram was performed. This showed religion of patency of the left external iliac artery stent with IntraStent stenosis, at 2 levels, each measuring 70% diameter. 7 mm angioplasty of the left external iliac stent was then performed at both levels. Post angioplasty arteriogram showed improvement in the stenoses but small amount of extravasation at the distal lesion. This was covered with a 8 x 60 mm fluency plus stent graft which was anchored with a 7 mm angioplasty. Post stent graft placement showed no residual bleeding. Arteriogram of the left popliteal artery was then performed from the same access site showing the left popliteal artery to be small but otherwise patent. This should serve as satisfactory distal target for femoropopliteal bypass. At this point, the catheters and wires removed. Right groin sheath was left in place and the patient transferred back to the ICU. The sheath will be removed within 1 to 2 hours. Contrast: Visipaque 320, 65 cc. Fluoroscopy: 5.3 minutes, 77 images captured. Impression: 1. Yazdanism of patency of the left external iliac artery stent. IntraStent stenoses identified, requiring angioplasty. Post angioplasty extravasation from the distal lesion required placement of an 8 x 60 mm fluency plus stent graft. 2. Continued total occlusion of the left SFA. 3. Patent popliteal artery for distal bypass options. PROCEDURE INTERPRETED AT [facility] DEPARTMENT OF RADIOLOGY Final Report Signed by: Maximilian Espinoza M.D.
[2017-04-20] MEDS ORDERED: MAGNESIUM SULF RIDER 4 GM in PREMIX 1 EACH IV PRN (16:13)
[2017-04-20] MEDS ORDERED: MAGNESIUM SULF RIDER 2 GM in PREMIX 1 EACH IV PRN (16:13)
[2017-04-20] MEDS: diphenhydrAMINE CAP 25 MG CAPSULE PO PRN (20:37)
[2017-04-21] MEDS: SODIUM CHLORIDE 0.9% 1,000 ML IV SCH ×2 (00:43→05:24)
[2017-04-21] MEDS: HEPARIN DRIP 25,000 UNITS/500 ML PREMIX IV SCH (02:48)
[2017-04-21 04:20] LABS: Eosinophils # 0.3 10*3/uL (0.0-0.87); Eosinophils % 6.3 % (0.00-10.9); Hemoglobin 6.7 GM/DL (12.0-16.0); Immature Granulocytes % 0.5 %; Immature Granulocytes Absolute 0.02 #; Lymphocytes # 0.9 10*3/uL (1.4-4.0); Lymphocytes % 20.6 % (21.3-54.2); Mean Corpuscular HGB Conc 30.5 GM/DL (32-36); Mean Corpuscular Hemoglobin 23 PG (27-34); Mean Corpuscular Volume 76.1 FL (87-102); Mean Platelet Volume 10.7 FL (9.6-12.0); Monocytes # 0.3 10*3/uL (0.11-0.8); Monocytes % 7.5 % (1.7-12.7); Neutrophils # 2.9 10*3/uL (1.4-7.4); Neutrophils % 65.1 % (38.7-73.9); Platelet Count 102 T/CUMM (130-400); Red Blood Count 2.89 MC/CUMM (3.8-5.5); Red Cell Distribution Width 20.2 % (9.3-17.3); White Blood Count 4.4 T/CUMM (4-12)
[2017-04-21 04:48] LABS: Calcium 8.1 MG/DL (8.5-10.1); Magnesium 2.1 MG/DL (1.8-2.4); Osmolality,Calculated 277.4 MOS/KG (273-304)
--- NOTE | 2017-04-21 08:40 | Cardiology Progress Note ---
<Ivon Chacon E - Last Filed: 04/21/17 08:29> Assessment and Plan - Time spent with patient Time spent with patient: Less than 30 minutes (1) Ischemic foot Status: Acute Assessment and plan: See plan of care listed below. 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 Current Visit: Yes (3) Paroxysmal atrial fibrillation Status: Chronic Assessment and plan: See plan of care listed below. Current Visit: Yes (4) Hypertension Status: Chronic Assessment and plan: See plan of care listed below. Current Visit: No (5) Peripheral vascular disease Status: Chronic Assessment and plan: See plan of care listed below. Current Visit: Yes (6) Iron deficiency anemia Status: Chronic Assessment and plan: See plan of care listed below. Current Visit: No Cardiology - PN: Subj Interval history: CO PILOT: DR. CAMARILLO PCP: Dr. Tan SUMMARY: Ms. Horne is a 81 year old female with a history of paroxysmal atrial fibrillation, hypertension, peripheral vascular disease, iron deficiency anemia who is admitted to the hospital for left ischemic foot. She underwent angiography of the left extremity which revealed total occlusion in the left external iliac artery stent and total occlusion of the left SFA. Interventional radiology placed infusion catheter for TPA thrombolysis of the stent. They are unable to track within the lumen of the left SFA with the catheter and wire. She has been receiving heparin through the sheath. She was anemic upon admission and received 2 units of blood. APRIL 21, 2017 UPDATE: Ms. Horne is doing well this morning. She reports she had a restful night and has had no further pain. Yesterday she was taken for an angiogram and received a stent to left external iliac artery. Her left foot is looking and feeling much better. Coloring has improved and it feels warmer she continues to have some cyanosis of the left great toe. She remains rate controlled in atrial fibrillation. Will continue to monitor. ASSESSMENT/PLAN: 1. ISCHEMIC FOOT - General surgery and IR are following. 2. LEFT EXTERNAL ILIAC STENT THROMBOSIS - Patient was found to have an occluded left external iliac artery stent and occluded left SFA which IR was unable to recannulate; runoff was not completed due to inflow disease. She received TPA infusion and was taken back to interventional radiology for angiogram during which she received a stent to the left external iliac artery. She remains on heparin drip at this time. 3. PAROXYSMAL ATRIAL FIBRILLATION - Continue Sotalol. Not a candidate for chronic anticoagulation due to anemia and history of thrombocytopenia. 4. HYPERTENSION - Better controlled than yesterday although slightly hypertensive at times. We will continue to monitor and adjust medications accordingly. 5. PERIPHERAL VASCULAR DISEASE - Chronic. 6. IRON DEFICIENCY ANEMIA - Anemic upon admission. She has required transfusion of blood products during this admission. H&H is 6.7 and 22 today. So we can maintain adequate rate control, we'll go ahead and transfuse 2 additional units of PRBCs. Exam (Progress Note) - Constitutional Vitals: Period Temp Pulse Resp BP Sys/Segura Pulse Ox Last 24 Hr 96.4 F-974 F 59-82 11-23 102-180/36-76 91-100 Exam: General appearance: Pleasant and cooperative. Normal weight, mild distress due to left lower extremity and left groin pain. - Head Head exam: Present: normal inspection, normocephalic, atraumatic. Absent: hematoma, laceration - Eye Eye exam: Present: EOMI. Absent: conjunctival injection, nystagmus, periorbital swelling, scleral icterus, laceration to eyelids Pupils: Present: PERRL. Absent: constricted, dilated, fixed, irregular, unequal - ENT ENT exam: Present: normal exam, normal external ear exam - Neck Neck exam: Present: normal inspection. Absent: lymphadenopathy, meningismus, tenderness, thyromegaly - Respiratory Respiratory exam: Present: clear to auscultation bilaterally. Absent: accessory muscle use, chest wall tenderness - Cardiovascular Cardiovascular exam: Present: Irregular rhythm. Absent: carotid bruit, gallop, JVD, rubs, murmur - GI/Abdominal GI/Abdominal exam: Present: normal bowel sounds, soft. Absent: distended, firm , guarding, hernia, mass, tenderness, rebound. - Extremities Exam Extremities exam: Present: Upper extremity pulses 2+. Right lower extremity pulse 2+. LLE PT pulse faintly palpable. No hematoma of either groin present. Sheath in place with some mild bleeding to the right groin. Absent: calf tenderness, edema -Musculoskeletal Exam Musculoskeletal: Present: No Fluid Collection, No Pain, Normal Range of Motion - Neurological Exam Neurological exam: Present: alert, oriented X3, grossly intact without resting or essential tremor - Psychiatric Psychiatric exam: Present: normal affect, normal mood - Skin Skin exam: Present: normal color, warm, dry, intact except: Left foot warmer and pink today with mild cyanosis of left great toe. Right foot pink and warm. Absent: diaphoretic, rash, urticaria Result/EKG - Labs CBC & BMP: 04/21/17 03:31 04/21/17 03:31 Lab Results: I have reviewed the past 24 hour labs Labs: Laboratory Results - last 24 hr 04/20/17 04/20/17 04/21/17 18:12 23:31 03:31 WBC 4.4 D RBC 2.89 L Hgb 6.7 L Hct 22.0 L MCV 76.1 L MCH 23 L MCHC 30.5 L RDW 20.2 H Plt Count 102 L MPV 10.7 Neut % (Auto) 65.1 Lymph % (Auto) 20.6 L [place] % (Auto) 7.5 Eos % (Auto) 6.3 Baso % (Auto) 0.0 Neut # (Auto) 2.9 Lymph # (Auto) 0.9 L [place] # (Auto) 0.3 Eos # (Auto) 0.3 Baso # (Auto) 0.0 Immature Gran % 0.5 Nucleated RBC % 0.0 Immature Gran # 0.02 Nucleated RBCs # 0.00 Circ Anticoag PTT 48.2 H D 62.1 H D Sodium Potassium Chloride Carbon Dioxide Anion Gap BUN Creatinine GFR Calculation BUN/Creatinine Ratio Glucose Calculated Osmolality Calcium Magnesium 04/21/17 04/21/17 03:31 03:45 WBC RBC Hgb Hct MCV MCH MCHC RDW Plt Count MPV Neut % (Auto) Lymph % (Auto) [place] % (Auto) Eos % (Auto) Baso % (Auto) Neut # (Auto) Lymph # (Auto) [place] # (Auto) Eos # (Auto) Baso # (Auto) Immature Gran % Nucleated RBC % Immature Gran # Nucleated RBCs # Circ Anticoag PTT 64.7 H Sodium 140 Potassium 4.0 Chloride 105 Carbon Dioxide 28 Anion Gap 11.0 BUN 9 Creatinine 0.40 L GFR Calculation 86 BUN/Creatinine Ratio 22.00 H Glucose 99 Calculated Osmolality 277.4 Calcium 8.1 L Magnesium 2.1 - EKG EKG results: interpreted by me EKG shows: atrial fibrillation Quality Measures - VTE Contraindication to Pharmacological VTE Prophylaxis: High Risk of Bleeding <Flako Jacob - Last Filed: 04/21/17 10:47> Cardiology - PN: Subj Interval history: Patient is stable and doing well. She has a history of paroxysms of atrial fibrillation. She is unable to take anticoagulation related to her chronic anemia requiring multiple transfusions.. She is gotten additional blood this admission. I have discussed in detail the particulars of this case and I have examined the patient and reviewed the patient's chart both current and old. I was directly involved in the patient's evaluation and management and I completely agree with Ivon Chacon NP regarding this patient's evaluation and treatment plan. Exam (Progress Note) - Constitutional Vitals: Period Temp Pulse Resp BP Sys/Segura Pulse Ox Last 24 Hr 96.4 F-974 F 60-82 11-23 102-171/36-71 91-100 Result/EKG - Labs CBC & BMP: 04/21/17 03:31 04/21/17 03:31 Labs: Laboratory Results - last 24 hr 04/20/17 04/20/17 04/21/17 18:12 23:31 03:28 WBC RBC Hgb Hct MCV MCH MCHC RDW Plt Count MPV Neut % (Auto) Lymph % (Auto) [place] % (Auto) Eos % (Auto) Baso % (Auto) Neut # (Auto) Lymph # (Auto) [place] # (Auto) Eos # (Auto) Baso # (Auto) Immature Gran % Nucleated RBC % Immature Gran # Nucleated RBCs # Circ Anticoag PTT 48.2 H D 62.1 H D Sodium Potassium Chloride Carbon Dioxide Anion Gap BUN Creatinine GFR Calculation BUN/Creatinine Ratio Glucose Calculated Osmolality Calcium Magnesium Blood Type O NEGATIVE Antibody Screen Negative Crossmatch See Detail 04/21/17 04/21/17 04/21/17 03:31 03:31 03:45 WBC 4.4 D RBC 2.89 L Hgb 6.7 L Hct 22.0 L MCV 76.1 L MCH 23 L MCHC 30.5 L RDW 20.2 H Plt Count 102 L MPV 10.7 Neut % (Auto) 65.1 Lymph % (Auto) 20.6 L [place] % (Auto) 7.5 Eos % (Auto) 6.3 Baso % (Auto) 0.0 Neut # (Auto) 2.9 Lymph # (Auto) 0.9 L [place] # (Auto) 0.3 Eos # (Auto) 0.3 Baso # (Auto) 0.0 Immature Gran % 0.5 Nucleated RBC % 0.0 Immature Gran # 0.02 Nucleated RBCs # 0.00 Circ Anticoag PTT 64.7 H Sodium 140 Potassium 4.0 Chloride 105 Carbon Dioxide 28 Anion Gap 11.0 BUN 9 Creatinine 0.40 L GFR Calculation 86 BUN/Creatinine Ratio 22.00 H Glucose 99 Calculated Osmolality 277.4 Calcium 8.1 L Magnesium 2.1 Blood Type Antibody Screen Crossmatch 04/21/17 09:52 WBC RBC Hgb Hct MCV MCH MCHC RDW Plt Count MPV Neut % (Auto) Lymph % (Auto) [place] % (Auto) Eos % (Auto) Baso % (Auto) Neut # (Auto) Lymph # (Auto) [place] # (Auto) Eos # (Auto) Baso # (Auto) Immature Gran % Nucleated RBC % Immature Gran # Nucleated RBCs # Circ Anticoag PTT 67.8 H Sodium Potassium Chloride Carbon Dioxide Anion Gap BUN Creatinine GFR Calculation BUN/Creatinine Ratio Glucose Calculated Osmolality Calcium Magnesium Blood Type Antibody Screen Crossmatch
--- NOTE | 2017-04-21 08:42 | Event Note ---
Ms. Ching has had successful revascularization of the left external iliac artery stent with the recanalization and placement of a new stent however she now has total occlusion of the left SFA which were not able to recanalize. However her foot is comfortable is reasonably warm there is some cyanosis in the first toe but the rest of the foot seems to be doing well. My thoughts are that we should did not attempt femoral-popliteal bypassing unless she developed critical ischemia of the left foot and which point I would hopefully be able to do in situ vein graft. However she may do quite well with left superficial femoral occlusion and flow into the profunda and my intent would be to continue that as possible. She is not a good candidate for chronic anticoagulation other than Plavix so we will continue that. She has had a nosebleed still on heparin and TPA this should resolve with the move of the oxygen and I will stop heparin today. I am going to go ahead and give 2 more units of packed cells as her blood count has dropped again down to the 22 range
[2017-04-21] MEDS ORDERED: SODIUM CHLORIDE 0.9% 250 ML IV PRN (08:47)
[2017-04-21] MEDS: MAGNESIUM OXIDE 400 MG TABLET PO SCH ×2 (09:04→20:27)
[2017-04-21] MEDS: MULTIVITAMIN (CENTRUM) TABLET PO SCH (09:04)
[2017-04-21] MEDS: SOTALOL 80 MG TABLET PO SCH ×2 (09:05→20:27)
[2017-04-21] MEDS: PANTOPRAZOLE 40 MG TABLET PO SCH (09:05)
[2017-04-21] MEDS: LOVASTATIN 20 MG TABLET PO SCH (09:05)
[2017-04-21] MEDS ORDERED: CLOPIDOGREL 75 MG TABLET PO SCH (10:15)
--- NOTE | 2017-04-21 12:01 | Event Note ---
Left great toe less dusky, more rubor. Left foot warm and dry. No DP or PT pulse. Tx to floor.
[2017-04-21] MEDS: CLOPIDOGREL 75 MG TABLET PO SCH (12:03)
[2017-04-21] MEDS: MORPHINE 2 MG/1 ML SYRINGE IV PRN (20:33)
[2017-04-22 00:49] LABS: Basophils % 0.2 % (0.0-0.8); Eosinophils # 0.2 10*3/uL (0.0-0.87); Eosinophils % 4.9 % (0.00-10.9); Hematocrit 28.4 VOL% (35.7-47.0); Hemoglobin 9.2 GM/DL (12.0-16.0); Immature Granulocytes % 0.4 %; Immature Granulocytes Absolute 0.02 #; Mean Corpuscular HGB Conc 32.4 GM/DL (32-36); Mean Corpuscular Hemoglobin 25 PG (27-34); Monocytes # 0.4 10*3/uL (0.11-0.8); Monocytes % 8.3 % (1.7-12.7); Neutrophils # 3.1 10*3/uL (1.4-7.4); Neutrophils % 65.2 % (38.7-73.9); Red Blood Count 3.64 MC/CUMM (3.8-5.5); Red Cell Distribution Width 19.9 % (9.3-17.3); White Blood Count 4.7 T/CUMM (4-12)
[2017-04-22 00:54] LABS: Platelet Count 88 T/CUMM (130-400)
[2017-04-22 01:24] LABS: Calcium 8.1 MG/DL (8.5-10.1); Magnesium 2.1 MG/DL (1.8-2.4); Osmolality,Calculated 278.4 MOS/KG (273-304); Potassium 4.2 MMOL/L (3.5-5.1)
[2017-04-22 01:34] LABS: Eosinophils 3 % (0-10); Lymphocytes 22 % (20-55); Total Cells Counted 100
[2017-04-22 01:37] LABS: Hypochromasia Slight; Ovalocytes 1+
[2017-04-22 01:38] LABS: Platelet Estimate Adequate; Segmented Neutrophils 72 % (50-85)
[2017-04-22 08:15] VITALS: BP 162/77
--- NOTE | 2017-04-22 08:25 | Event Note ---
Status post revascularization left lower extremity. T-max 100.4 vital signs stable. Received 2 units packed red blood cells. H&H 9.2 and 28.4. Complains of some mild pain in the left toes. On exam left foot is warm with some mild ischemic changes of the left toes. Overall the foot is apparently improved.
[2017-04-22] MEDS: CLOPIDOGREL 75 MG TABLET PO SCH (08:48)
[2017-04-22] MEDS: SOTALOL 80 MG TABLET PO SCH (08:48)
[2017-04-22] MEDS: MULTIVITAMIN (CENTRUM) TABLET PO SCH (08:48)
[2017-04-22] MEDS: LOVASTATIN 20 MG TABLET PO SCH (08:48)
[2017-04-22] MEDS: MAGNESIUM OXIDE 400 MG TABLET PO SCH (08:49)
[2017-04-22] MEDS: PANTOPRAZOLE 40 MG TABLET PO SCH (08:49)
--- NOTE | 2017-04-22 08:58 | Discharge Summary ---
Hospital Course - Hospital Course Hospital Course: Mariana Ching an 81-year-old woman was admitted with occlusion of her left external iliac artery stent in her left superficial femoral artery. Significantly last September she had had thrombolyzes with the placement of the left iliac stent we were really unable to recanalize her previously stented left superficial femoral artery. That apparently she had developed a thrombosis of over 2 or 3 weeks prior to her admission and had a cool cyanotic foot when admitted. We were able to successfully recanalize the left external iliac and did require placement of another stent there we were unable to recanalize the left superficial femoral artery but the perfusion of her foot is markedly better. I do not believe she needs femoral-popliteal bypassing at this point in time although at some point the future that may be required. 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 Significantly she has atrial fibrillation and this is being maintained with Betapace and Plavix and is felt that she is not a candidate for anticoagulation due to the chronic anemia. We have transfused 4 units of blood during this hospitalization her hematocrit is now 28 platelet count is 88,000 but that is felt to be related to the TPA infusions and thrombolyzes. She is comfortable she has a walker at home she has full-time help at home and we feel that she is safe to be discharged today. I will see her in the office in approximately 10 days I will see her sooner as needed we will also set up routine follow-up with Dr. freire when I see her in office. Diagnosis - Discharge Diagnosis (1) Ischemic foot Status: Acute (2) Anemia Status: Acute Discharge Plan - Discharge Medications No Action Multivit-Min/Iron/Folic/Lutein [Centrum Silver Women Tablet] 1 each PO QAM Magnesium Oxide 400 mg PO BID tablet Clopidogrel [Plavix] 75 mg PO QAM Lovastatin 20 mg PO QAM Sotalol [Betapace] 40 mg PO BID #60 tablet - Follow Up or Referral - Forms/Instructions Exam - Constitutional Vitals: Period Temp Pulse Resp BP Sys/Segura Pulse Ox Last 24 Hr 98.5 F-100.0 F 69-91 16-24 129-162/49-90 90-96 Discharge Results Labs on day of discharge: Labs from last 24 hours 04/22/17 04/22/17 04/21/17 00:39 00:39 09:52 WBC 4.7 RBC 3.64 L D Hgb 9.2 L D Hct 28.4 L MCV 78.0 L MCH 25 L MCHC 32.4 RDW 19.9 H Plt Count 88 L MPV 10.0 Neut % (Auto) 65.2 Lymph % (Auto) 21.0 L [place] % (Auto) 8.3 Eos % (Auto) 4.9 Baso % (Auto) 0.2 Neut # (Auto) 3.1 Lymph # (Auto) 1.0 L [place] # (Auto) 0.4 Eos # (Auto) 0.2 Baso # (Auto) 0.0 Total Counted 100 Immature Gran % 0.4 Nucleated RBC % 0.0 Immature Gran # 0.02 Segmented Neutrophils 72 Lymphocytes 22 Monocytes 3 Eosinophils 3 Nucleated RBCs # 0.00 Platelet Estimate Adequate Hypochromasia Slight Ovalocytes 1+ Circ Anticoag PTT 67.8 H Sodium 140 Potassium 4.2 Chloride 104 Carbon Dioxide 31 Anion Gap 9.2 BUN 9 Creatinine 0.50 L GFR Calculation 80 BUN/Creatinine Ratio 18.00 Glucose 123 H Calculated Osmolality 278.4 Calcium 8.1 L Magnesium 2.1 Blood Type Antibody Screen Crossmatch 04/21/17 03:28 WBC RBC Hgb Hct MCV MCH MCHC RDW Plt Count MPV Neut % (Auto) Lymph % (Auto) [place] % (Auto) Eos % (Auto) Baso % (Auto) Neut # (Auto) Lymph # (Auto) [place] # (Auto) Eos # (Auto) Baso # (Auto) Total Counted Immature Gran % Nucleated RBC % Immature Gran # Segmented Neutrophils Lymphocytes Monocytes Eosinophils Nucleated RBCs # Platelet Estimate Hypochromasia Ovalocytes Circ Anticoag PTT Sodium Potassium Chloride Carbon Dioxide Anion Gap BUN Creatinine GFR Calculation BUN/Creatinine Ratio Glucose Calculated Osmolality Calcium Magnesium Blood Type O NEGATIVE Antibody Screen Negative Crossmatch See Detail DS: Provider Date of admission: 04/19/17 12:49 Primary care physician: Deb Tan M.D. Attending physician on admission: Rajat Raymond MD Consults: 04/19/17 12:52 Consult to Physician [CONS] Routine Comment: thrombolysis? Consulting Provider: Maximilian Espinoza 04/19/17 12:56 Consult to Physician [CONS] Routine Comment: patient known to you, previus atrial fib Consulting Provider: Anna Martínez 04/19/17 16:24 Consult to Pastoral Services [CONS] Routine Comment: Pastoral Screen: Declines Visit Pastoral Screen Source of Request: Patient Discharging clinician: Rajat Raymond MD
--- NOTE | 2017-04-22 09:02 | Discharge Summary ---
Hospital Course - Hospital Course Hospital Course: Mariana Ching an 81-year-old woman was admitted with occlusion of her left external iliac artery stent in her left superficial femoral artery. Significantly last September she had had thrombolyzes with the placement of the left iliac stent we were really unable to recanalize her previously stented left superficial femoral artery. That apparently she had developed a thrombosis of over 2 or 3 weeks prior to her admission and had a cool cyanotic foot when admitted. We were able to successfully recanalize the left external iliac and did require placement of another stent there we were unable to recanalize the left superficial femoral artery but the perfusion of her foot is markedly better. I do not believe she needs femoral-popliteal bypassing at this point in time although at some point the future that may be required. 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 Significantly she has atrial fibrillation and this is being maintained with Betapace and Plavix and is felt that she is not a candidate for anticoagulation due to the chronic anemia. We have transfused 4 units of blood during this hospitalization her hematocrit is now 28 platelet count is 88,000 but that is felt to be related to the TPA infusions and thrombolyzes. She is comfortable she has a walker at home she has full-time help at home and we feel that she is safe to be discharged today. I will see her in the office in approximately 10 days I will see her sooner as needed we will also set up routine follow-up with Dr. freire when I see her in office. Diagnosis - Discharge Diagnosis (1) Ischemic foot Status: Acute (2) Anemia Status: Acute Discharge Plan - Discharge Data Disposition: Disch To Home/Self Care Condition at Discharge: Guarded Discharge Diet: advance to your usual diet Activity: resume usual activities as tolerated Hygiene: no restrictions Weight Bearing at Discharge: full weight bearing Driving: no restrictions Contact your physician if you experience:: fever over 101, Redness or swelling, Bleeding - Discharge Medications New Lidocaine 5% Patch [Lidoderm 5% Patch] 1 patch TRANSDERM DAILY PRN patch PRN Reason: Pain (Breakthrough) HYDROcodone/ACETAMIN 7.5-325 [[place] 7.5-325] 1 tablet PO Q4H PRN #30 tablet PRN Reason: Pain Moderate (4-7) Continue Multivit-Min/Iron/Folic/Lutein [Centrum Silver Women Tablet] 1 each PO QAM Magnesium Oxide 400 mg PO BID tablet Clopidogrel [Plavix] 75 mg PO QAM Lovastatin 20 mg PO QAM Sotalol [Betapace] 40 mg PO BID #60 tablet - Follow Up or Referral Follow Up: Rajat Raymond MD [Physician] - 05/01/17 - Forms/Instructions Exam - Constitutional Vitals: Period Temp Pulse Resp BP Sys/Segura Pulse Ox Last 24 Hr 98.5 F-100.0 F 69-91 16-24 129-162/49-90 90-96 Discharge Results Labs on day of discharge: Labs from last 24 hours 04/22/17 04/22/17 04/21/17 00:39 00:39 09:52 WBC 4.7 RBC 3.64 L D Hgb 9.2 L D Hct 28.4 L MCV 78.0 L MCH 25 L MCHC 32.4 RDW 19.9 H Plt Count 88 L MPV 10.0 Neut % (Auto) 65.2 Lymph % (Auto) 21.0 L [place] % (Auto) 8.3 Eos % (Auto) 4.9 Baso % (Auto) 0.2 Neut # (Auto) 3.1 Lymph # (Auto) 1.0 L [place] # (Auto) 0.4 Eos # (Auto) 0.2 Baso # (Auto) 0.0 Total Counted 100 Immature Gran % 0.4 Nucleated RBC % 0.0 Immature Gran # 0.02 Segmented Neutrophils 72 Lymphocytes 22 Monocytes 3 Eosinophils 3 Nucleated RBCs # 0.00 Platelet Estimate Adequate Hypochromasia Slight Ovalocytes 1+ Circ Anticoag PTT 67.8 H Sodium 140 Potassium 4.2 Chloride 104 Carbon Dioxide 31 Anion Gap 9.2 BUN 9 Creatinine 0.50 L GFR Calculation 80 BUN/Creatinine Ratio 18.00 Glucose 123 H Calculated Osmolality 278.4 Calcium 8.1 L Magnesium 2.1 Blood Type Antibody Screen Crossmatch 04/21/17 03:28 WBC RBC Hgb Hct MCV MCH MCHC RDW Plt Count MPV Neut % (Auto) Lymph % (Auto) [place] % (Auto) Eos % (Auto) Baso % (Auto) Neut # (Auto) Lymph # (Auto) [place] # (Auto) Eos # (Auto) Baso # (Auto) Total Counted Immature Gran % Nucleated RBC % Immature Gran # Segmented Neutrophils Lymphocytes Monocytes Eosinophils Nucleated RBCs # Platelet Estimate Hypochromasia Ovalocytes Circ Anticoag PTT Sodium Potassium Chloride Carbon Dioxide Anion Gap BUN Creatinine GFR Calculation BUN/Creatinine Ratio Glucose Calculated Osmolality Calcium Magnesium Blood Type O NEGATIVE Antibody Screen Negative Crossmatch See Detail DS: Provider Date of admission: 04/19/17 12:49 Primary care physician: Deb Tan M.D. Attending physician on admission: Rajat Raymond MD Consults: 04/19/17 12:52 Consult to Physician [CONS] Routine Comment: thrombolysis? Consulting Provider: Maximilian Espinoza 04/19/17 12:56 Consult to Physician [CONS] Routine Comment: patient known to you, previus atrial fib Consulting Provider: Anna Martínez 04/19/17 16:24 Consult to Pastoral Services [CONS] Routine Comment: Pastoral Screen: Declines Visit Pastoral Screen Source of Request: Patient Discharging clinician: Rajat Raymond MD
== END 2017-04-22 10:30 | disposition home or self-care (01) | DRG 271 ==
LOC: N.ED 11:09 → N.EDINP 12:48 → N.ICU 15:37 → N.3E 04-21 16:23
PROVIDERS: ADMIT Surgery; ATTEND Surgery
PROC: IRURORE (2017-04-20 09:50)

== ENCOUNTER 2017-08-23 13:33 | Inpatient (IN) ==
[2017-08-23] MEDS ORDERED: ONDANSETRON 4 MG/2 ML VIAL IV PRN (15:44)
[2017-08-23] MEDS ORDERED: guaiFENesin/DM ER 600-30 MG TABLET PO PRN (15:44)
[2017-08-23] MEDS ORDERED: MORPHINE 2 MG/1 ML SYRINGE IV PRN (15:44)
[2017-08-23] MEDS ORDERED: ACETAMINOPHEN 325 MG TABLET PO PRN ×2 (15:44)
[2017-08-23] MEDS ORDERED: diphenhydrAMINE CAP 25 MG CAPSULE PO PRN (15:44)
[2017-08-23] MEDS ORDERED: DOCUSATE SODIUM 100 MG CAPSULE PO PRN (15:44)
[2017-08-23] MEDS ORDERED: LIDOCAINE 5% PATCH TRANSDERM PRN (15:50)
[2017-08-23] MEDS ORDERED: SODIUM CHLORIDE 0.9% 1,000 ML IV SCH (16:00)
[2017-08-23 16:10] LABS: Basophils % 0.6 % (0.0-0.8); Eosinophils # 0.1 10*3/uL (0.0-0.87); Hematocrit 29.5 VOL% (35.7-47.0); Immature Granulocytes % 0.3 %; Immature Granulocytes Absolute 0.01 #; Lymphocytes # 0.9 10*3/uL (1.4-4.0); Lymphocytes % 23.8 % (21.3-54.2); Mean Corpuscular HGB Conc 27.1 GM/DL (32-36); Mean Corpuscular Hemoglobin 20 PG (27-34); Mean Corpuscular Volume 74.1 FL (87-102); Mean Platelet Volume 10.9 FL (9.6-12.0); Monocytes # 0.4 10*3/uL (0.11-0.8); Monocytes % 10.2 % (1.7-12.7); Neutrophils # 2.2 10*3/uL (1.4-7.4); Neutrophils % 62.1 % (38.7-73.9); Platelet Count 165 T/CUMM (130-400); Red Blood Count 3.98 MC/CUMM (3.8-5.5); Red Cell Distribution Width 17.5 % (9.3-17.3); White Blood Count 3.6 T/CUMM (4-12)
[2017-08-23] MEDS: PANTOPRAZOLE 40 MG TABLET PO SCH (16:17)
[2017-08-23 16:37] LABS: Albumin 3.5 G/DL (3.4-5.0); Bilirubin,Total 0.5 MG/DL (0.2-1.0); Calcium 8.8 MG/DL (8.5-10.1); Free T4 (Free Thyroxine) 0.98 NG/DL (0.76-1.46); Magnesium 2.1 MG/DL (1.8-2.4); Osmolality,Calculated 279.3 MOS/KG (273-304); Potassium 4.9 MMOL/L (3.5-5.1); Thyroid Stimulating Hormone 1.71 uIU/ml (0.358-3.74); Total Protein 6.8 G/DL (6.4-8.3)
[2017-08-23] MEDS ORDERED: SODIUM CHLORIDE 0.9% 1,000 ML IV PRN (16:40)
[2017-08-23] MEDS: SOTALOL 80 MG TABLET PO SCH (20:59)
[2017-08-24 04:40] LABS: Basophils % 0.6 % (0.0-0.8); Eosinophils # 0.2 10*3/uL (0.0-0.87); Eosinophils % 5.1 % (0.00-10.9); Hematocrit 32.4 VOL% (35.7-47.0); Hemoglobin 9.5 GM/DL (12.0-16.0); Immature Granulocytes % 0.3 %; Immature Granulocytes Absolute 0.01 #; Lymphocytes # 0.9 10*3/uL (1.4-4.0); Lymphocytes % 27.7 % (21.3-54.2); Mean Corpuscular HGB Conc 29.3 GM/DL (32-36); Mean Corpuscular Hemoglobin 22 PG (27-34); Mean Corpuscular Volume 76.2 FL (87-102); Mean Platelet Volume 10.7 FL (9.6-12.0); Monocytes # 0.4 10*3/uL (0.11-0.8); Monocytes % 10.4 % (1.7-12.7); Neutrophils # 1.9 10*3/uL (1.4-7.4); Neutrophils % 55.9 % (38.7-73.9); Platelet Count 144 T/CUMM (130-400); Red Blood Count 4.25 MC/CUMM (3.8-5.5); White Blood Count 3.4 T/CUMM (4-12)
[2017-08-24 08:01] VITALS: BP 143/64
[2017-08-24] MEDS ORDERED: LOVASTATIN 20 MG TABLET PO SCH (09:00)
[2017-08-24] MEDS ORDERED: MULTIVITAMIN (CENTRUM) TABLET PO SCH (09:00)
[2017-08-24] MEDS ORDERED: CLOPIDOGREL 75 MG TABLET PO SCH (09:00)
[2017-08-24] MEDS: PANTOPRAZOLE 40 MG TABLET PO SCH (09:23)
[2017-08-24] MEDS: SOTALOL 80 MG TABLET PO SCH (09:24)
== END 2017-08-24 11:17 | disposition home or self-care (01) | DRG 812 ==
LOC: N.TELES 14:12
PROVIDERS: ADMIT Internal Medicine; ATTEND Internal Medicine

== ENCOUNTER 2018-04-28 06:57 | Observation (INO) ==
[2018-04-29 08:18] VITALS: BP 182/83
== END 2018-04-29 11:30 | disposition home or self-care (01) ==
LOC: EDUNIT# → EDBD → N.ED 06:57 → N.EDINP 06:57 → N.TELES 11:41
PROVIDERS: ADMIT Internal Medicine; ATTEND Internal Medicine